=== PATIENT | male | born 1970 | race Two or more races ===

== ENCOUNTER 2025-01-01 19:33 | Emergency (ER) | payer MEDICAID, OTHER ==
[~2025-01-01] VITALS: Ht 172.7 cm; Wt 91.0 kg
[2025-01-01 19:44] VITALS: O2SAT 98
[2025-01-01] MEDS: PANTOPRAZOLE SODIUM 40 MG/VIAL IV ONE (20:19)
[2025-01-01] MEDS: ONDANSETRON HCL 4MG/2ML INJ IV ONE (20:20)
[2025-01-01] MEDS: ASPIRIN 325MG EC TABLET PO ONE (20:20)
[2025-01-01 20:26] LABS: BASOPHILS % 0.3 % (0.0-2.0); EOSINOPHILS % 1.0 % (0.0-5.0); HEMATOCRIT. 46.5 % (42.0-52.0); HEMOGLOBIN. 14.8 g/dL (14.0-18.0); LYMPHOCYTES % 13.1 % (20.0-50.0); MEAN PLATELET VOLUME 7.9 fl (7.4-10.4); MONOCYTES % 5.6 % (2.0-8.0); NEUTROPHILS % 80.0 % (40.0-76.0); PLATELET 184 x1000/uL (130-400); RED BLOOD CELL COUNT 6.33 mill/uL (4.7-6.1); RED CELL DISTRIBUTION WIDTH 16.3 % (11.6-14.6)
[2025-01-01 20:38] LABS: INR 0.9
[2025-01-01 20:39] LABS: CREATININE 1.0 mg/dL (0.6-1.3); UREA NITROGEN BLOOD 11 mg/dL (9-23)
[2025-01-01 20:42] LABS: ASPARTATE AMINOTRANSFERASE 27 IU/L (<34); BILIRUBIN DIRECT 0.1 mg/dL (<=3.0); BILIRUBIN TOTAL 0.5 mg/dL (0.1-1.0); PROTEIN TOTAL 7.8 g/dL (6.0-8.3); TROPONIN I HIGH SENSITIVITY 7 ng/L (3.0-53)
[2025-01-01] MEDS: MORPHINE SULFATE 2 MG/ML INJ (NOT FOR IM USE) IV ONE (21:32)
[2025-01-01 21:53] LABS: TROPONIN I HIGH SENSITIVITY 8 ng/L (3.0-53)
[2025-01-01] MEDS ORDERED: FAMO-134 MT (23:16)
[2025-01-01] MEDS ORDERED: HYDR-4001 MT (23:16)
[2025-01-01] MEDS ORDERED: MAG-55 MT (23:17)
[2025-01-01 23:30] VITALS: BP 113/65; PULSE 63; RESP 18; TEMP 36.7; O2SAT 97
== END 2025-01-01 23:35 | disposition home or self-care (01) ==
LOC: ER 19:33 → CMPBEDREQ 01-02 07:51
DX: K80.70 Calculus of gallbladder and bile duct without cholecystitis without obstruction (principal); R07.89 Other chest pain; I11.0 Hypertensive heart disease with heart failure; I50.9 Heart failure, unspecified; I25.10 Atherosclerotic heart disease of native coronary artery without angina pectoris; Z95.5 Presence of coronary angioplasty implant and graft; Z79.899 Other long term (current) drug therapy
CPT/HCPCS: 80076; 80048; 83880; 83690; 83735; 85025; 85610; 85730; 84484; 36415; 71045; 74176; 76705; 93005; 96374; 96375; 99285; J2405; J2470; J2270; Z7610; A4606